=== PATIENT | male | born 1950 | race Caucasian/White ===

== ENCOUNTER 2019-08-16 11:10 | Inpatient (IN) ==
[2019-08-16] MEDS ORDERED: IOPAMIDOL 100 ML BOTTLE IV ONE (11:11)
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
[2019-08-16] MEDS ORDERED: PYRIDOSTIGMINE 60 MG TABLET PO ONE ×2 (12:03→17:10)
[2019-08-16 12:21] LABS: ABG Methemoglobin 0.2 % (0.4-1.5); VBG Base Excess 3.3 (-2.0-2.0); VBG HCO3 29.7 mmol/L (24.0-28.0); VBG Oxygen Saturation 66.5 % (40.0-70.0); VBG PCO2 51.3 mmHg (41.0-51.0); VBG PH 7.38 U (7.32-7.42); VBG PO2 38 mmHg (25-40); VBG Total CO2 31.2 mmol/L (25.0-29.0)
[2019-08-16 12:31] LABS: Basophils # (Auto) 0 K/mcL (0.0-0.3); Basophils % (Auto) 0.6 % (0.0-2.0); Eosinophils # (Auto) 0.2 K/mcL (0.0-0.7); Eosinophils % (Auto) 3.2 % (0.0-7.0); Granulocytes % (Auto) 64.4 % (38.0-78.0); Hematocrit 48.6 % (41.0-55.0); Lymphocytes # (Auto) 1.2 K/mcL (1.5-4.8); Lymphocytes % (Auto) 19.7 % (15.5-49.0); Mean Cell Volume 94.9 fL (80.0-100.0); Mean Platelet Volume 8.3 fL (7.4-10.4); Monocytes # (Auto) 0.7 K/mcL (0.1-0.9); Monocytes % (Auto) 12.1 % (1.0-12.0); Platelet Count 163 K/mcL (140-440); RBC 5.12 M/mcL (4.50-5.90); Red Cell Distribution Width 13.8 % (11.5-14.5); WBC 5.9 K/mcL (4.5-11.0)
[2019-08-16 12:54] LABS: ALT/SGPT 33 U/l (0-40); AST/SGOT 44 U/l (0-37); Albumin 3.6 gm/dL (3.2-5.2); Albumin/Globulin Ratio 1.1 (1.0-2.3); Alkaline Phosphatase 136 U/L (39-117); Bilirubin,Total 0.5 mg/dL (0.0-1.0); Blood Urea Nitrogen 16 mg/dl (8-23); C-Reactive Protein 2.3 mg/dl (0.0-0.8); Calcium 8.8 mg/dl (8.6-10.4); Carbon Dioxide 29 mmol/L (22-30); Chloride 101 mmol/L (96-108); Globulin 3.4 gm/dL (2.2-3.7); Glomerular Filtration Rate 92; Glucose 67 mg/dL (70-105)
--- NOTE | 2019-08-16 13:09 | XRay Report ---
CLINICAL INFORMATION: rib pain, SOB COMPARISON: None. FINDINGS: The heart is mildly enlarged. Mediastinum unremarkable. Pulmonary vessels are mildly distended and there is mild interstitial disease throughout both lungs which could indicate edema from CHF. Small right pleural effusion noted. Acute minimally displaced fractures of the anterolateral left fifth, sixth and seventh ribs appreciated IMPRESSION: Mild CHF Acute mildly displaced fractures anterolateral left fifth sixth and seventh ribs Interpreted and Authenticated by: Apollo Lane 08/16/19
[2019-08-16] MEDS ORDERED: FUROSEMIDE 20 MG/2 ML VIAL IV ONE ×2 (13:20→19:37)
[2019-08-16] MEDS ORDERED: DEXTROSE 50% 50 ML SYRINGE IV ONE (15:55)
--- NOTE | 2019-08-16 16:32 | Cat Scan Report ---
CLINICAL INFORMATION: Hypoxia and chest pain COMPARISON: None. TECHNIQUE: 80 cc of Isovue-370 were injected intravenously, and 25 seconds later, 0.625 mm helical slices were obtained from the lung apices through the bases. Following reconstruction, 2.5 mm sagittal, coronal and axial reformations were processed and reviewed at lung, mediastinal and bone windows. 7 mm axial MIPS were also obtained to optimize pulmonary nodule detection. The exam was performed using radiation dose optimization techniques including, but not limited to, automated exposure control, adjustment of the mA and/or kV according to patient size and use of iterative reconstruction technique. FINDINGS: The pulmonary arteries are moderately distended but are well opacified no evidence of embolus. There is moderate interstitial edema within the interlobular and interlobar septa compatible with moderate congestive heart failure. Small lateral pleural effusions are present. There is mild atelectasis in both posterior lower lobes. No shannan infiltrates. Mediastinal windows also show the thoracic aorta is normal in diameter. The heart is moderately enlarged is heavy calcific fibrofatty plaque in the coronary arteries. There are multiple moderately enlarged mediastinal or hilar lymph nodes appreciated ranging up to 16 mm lower right paratracheal region. Images should the abdomen show wall thickening of the gallbladder multiple stones and pericholecystic fluid suggesting cholecystitis. Spleen is moderately enlarged estimated at 14 cm. Visualized kidneys pancreas and adrenal glands are normal.. Bones and soft tissues and chest wall show no abnormality IMPRESSION: 1. No evidence of pulmonary embolus 2. Moderate CHF 3. Cholecystitis 4. Mediastinal and hilar adenopathy. These may be benign reactive lymph nodes related CHF or prior infection. Lymphoma other neoplastic processes are, unfortunately not excluded. Spleen is moderately enlarged. Suggest short-term follow-up chest CT - 3 months Interpreted and Authenticated by: Apollo Lane 08/16/19
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
[2019-08-16] MEDS ORDERED: HYDROcodone/APAP 10/325MG TABLET PO PRN (19:37)
[2019-08-16] MEDS ORDERED: POTASSIUM CHLORIDE 20 MEQ TABLET PO PRN ×2 (19:37)
[2019-08-16] MEDS ORDERED: DEXTROSE 50% 50 ML VIAL IV PRN (19:37)
[2019-08-16] MEDS ORDERED: SENNOSIDES 1 TABLET PO PRN (19:37)
[2019-08-16] MEDS ORDERED: IPRATROPIUM/ALBUTEROL 3 ML AMPUL.NEB NEB ONE ×2 (19:37→19:52)
[2019-08-16] MEDS ORDERED: IPRATROPIUM/ALBUTEROL 3 ML AMPUL.NEB NEB PRN (19:37)
[2019-08-16] MEDS ORDERED: MAGNESIUM SULFATE 2 GM/50 ML BAG IV PRN (19:37)
[2019-08-16] MEDS ORDERED: POTASSIUM CHLORIDE 40 MEQ in DEXTROSE 5% IN WATER 500 ML IV PRN (19:37)
[2019-08-16] MEDS ORDERED: POLYETHYLENE GLYCOL 3350 17 GM PACKET PO PRN (19:37)
[2019-08-16] MEDS ORDERED: ONDANSETRON 4 MG/2 ML VIAL IV PRN (19:37)
[2019-08-16] MEDS ORDERED: DEXTROSE 31 GM ORAL.SUSP PO PRN (19:37)
[2019-08-16] MEDS: 0.9 % SODIUM CHLORIDE 10 ML SYRINGE IV SCH (20:58)
[2019-08-16] MEDS: INSULIN LISPRO 1 UNIT/0.01 ML UNIT SQ SCH (21:03)
[2019-08-16] MEDS: GABAPENTIN 300 MG CAPSULE PO SCH (21:10)
[2019-08-16] MEDS: MYCOPHENOLATE 250 MG CAPSULE PO SCH (21:10)
[2019-08-16] MEDS: DOCUSATE SODIUM 100 MG CAPSULE PO SCH (21:10)
[2019-08-16] MEDS: PRAMIPEXOLE 0.25 MG TABLET PO SCH (21:11)
[2019-08-16] MEDS: PYRIDOSTIGMINE 60 MG TABLET PO SCH (21:12)
[2019-08-16] MEDS: traZODone HCL 50 MG TABLET PO SCH (21:55)
[2019-08-17] MEDS: 0.9 % SODIUM CHLORIDE 10 ML SYRINGE IV SCH ×3 (04:52→21:09)
[2019-08-17 05:56] LABS: Basophils # (Auto) 0 K/mcL (0.0-0.3); Basophils % (Auto) 0.4 % (0.0-2.0); Eosinophils # (Auto) 0.2 K/mcL (0.0-0.7); Eosinophils % (Auto) 3.2 % (0.0-7.0); Granulocytes % (Auto) 63.5 % (38.0-78.0); Hemoglobin 15.4 g/dL (13.5-16.5); Lymphocytes # (Auto) 1.5 K/mcL (1.5-4.8); Lymphocytes % (Auto) 20.9 % (15.5-49.0); Mean Cell Volume 95.7 fL (80.0-100.0); Mean Corpuscular HGB Conc 32.9 g/dL (31.0-36.0); Mean Platelet Volume 8.3 fL (7.4-10.4); Monocytes # (Auto) 0.9 K/mcL (0.1-0.9); Platelet Count 164 K/mcL (140-440); RBC 4.91 M/mcL (4.50-5.90); WBC 7.1 K/mcL (4.5-11.0)
[2019-08-17 06:21] LABS: ALT/SGPT 29 U/l (0-40); AST/SGOT 40 U/l (0-37); Albumin 3.2 gm/dL (3.2-5.2); Albumin/Globulin Ratio 0.9 (1.0-2.3); Alkaline Phosphatase 128 U/L (39-117); Bilirubin,Direct < 0.2 mg/dL (0.0-0.3); Bilirubin,Total 0.4 mg/dL (0.0-1.0); Blood Urea Nitrogen 16 mg/dl (8-23); C-Reactive Protein 2.2 mg/dl (0.0-0.8); Calcium 8.6 mg/dl (8.6-10.4); Carbon Dioxide 30 mmol/L (22-30); Chloride 100 mmol/L (96-108); Globulin 3.4 gm/dL (2.2-3.7); Glomerular Filtration Rate 97; Glucose 112 mg/dL (70-105); Lactate Dehydrogenase 233 U/L (94-250); Phosphorous 3.5 mg/dL (2.7-4.5); Triglycerides 89 mg/dl (<150); Uric Acid 3.6 mg/dL (2.5-8.0)
--- NOTE | 2019-08-17 07:24 | Internal Med Progress Note ---
Medical - PN: Subj Patient information: Note initiated : 08/17/19 at 7:14 am Service Date, if different from initiated Date: [] Patient: Nikos De Leon 69 y/o M admitted on 08/16/19 for rib pain. Chief Complaint: [] Interval history: Mr. De Leon is a 69 year old M Who presents the ED with coughing and shortness of breath for a week. Patient denies any history of heart disease or lung disease. He does have history of raynauds, myasthenia gravis, obesity, diabetes, obstructive sleep apnea. Patient states a week ago he was crawling under his house and crawlspace and developed sudden left rib pain. Since that time he is developed a cough which is occasionally productive of clear sputum and shortness of breath. Those symptoms have continued for the past week with no improvement thus prompting him to come to the ED. He denies any peripheral edema or weight gain. Sometimes has edema in his legs but none lately. He sleeps flat in a bed. No orthopnea paroxysmal nocturnal dyspnea. He has chronic shortness of breath. Has never been evaluated for home oxygen. Does have some lower abdominal crampy pain. His chest pain is pleuritic worsened by coughing and deep breath. He was wheezy and states he only gets this way with a bad colds. Had some chills denies fever. Has occasional headache. Arrival in the ED was mid 80s on room air. CT chest was done which showed some interstitial edema with some underlying interstitial disease. Some small pleural effusion. Lymphadenopathy mediastinal. Splenomegaly. The read also mentions cholecystitis however the patient does not have any right upper quadrant abdominal pain on deep palpation. Concerns for CHF however he has no peripheral edema, unable to assess for JVD given his neck girth and adipose. He has no orthopnea. proBNP was low. Does h ave a history of Raynaud's disease and there is question of could this be a connective tissue/interstitial lung disease. Case was discussed with Dr. Wang, he was unable to read the films. he did not have any further recommendations at this time. Patient was given Lasix in the ED and did urinate quite a bit. Asked if he feels better from the time he arrived in the ED he does say yes, but is still on oxygen. 08/17 Patient had an echocardiogram in beginning of July, ordered by Dr. Caro. Patient thinks because he started hearing something in the veins and then concern of possible heart failure. But the echo report which is very brief mentions normal left ventricular systolic function and normal wall motion, no significant valvular disease. Patient overall feeling better still on oxygen this morning. Still has cough but that is improving and his shortness of breath is improving. Feel like the DuoNeb treatment last night helped. Is urinated quite a bit since the ED. R espiratory viral panel still pending. Difficulty sleeping because of uncomfortable bed. Has some crampy abdominal pain. Review of Systems: denies headache/fever/chills/nausea/vomiting/chest pain/. Otherwise see above. - Constitutional Vitals: Vital Signs Temp Pulse Resp BP Pulse Ox 98.5 F 64 28 H 122/66 92 08/17/19 03:55 08/17/19 03:55 08/17/19 03:55 08/17/19 03:55 08/17/19 03:55 Period Temp Pulse Resp BP Sys/Clifford Pulse Ox Last 24 Hr 97.8 F-98.5 F 52-111 15-28 99-156/46-109 85-96 Intake and Output 08/16/19 08/17/19 08/17/19 21:59 05:59 13:59 Intake Total 120 340 Output Total 825 1376 Balance -705 -1036 Weight 97.704 kg Intake & Output: Intake & Output 08/16/19 08/17/19 08/17/19 21:59 05:59 13:59 Intake Total 120 340 Output Total 825 1376 Balance -705 -1036 Weight 97.704 kg Intake: Oral 120 340 Output: Void Amount 825 1375 # of times incontinent of urine 1 Other: Meal chees stick, egg salad & crackers, juice 2x grahm cracker pk, 2x cheese stick, 1x whole milk Percent of Meal Consumed 100% 100% Feeding Ability Independent Independent Urine Appearance Clear Clear Urine Color Pale Dark Yellow Exam: General: Alert, Awake, No acute Distress, obese Eyes/N/T: EOMI, Head/Neck: neck supple, CV: RRR, No murmurs, Pulm: no rhonchi or wheezing today Abd: soft, nontender, +BS x4 Ext: no clubbing/cyanosis/edema Neuro: Alert, no focal deficits, moves all extremities, Skin: warm/dry Medical - PN: Obj Da - Labs CBC & Chem 7: 08/17/19 04:36 08/17/19 04:36 Labs: Abnormal Lab Results 08/17/19 08/16/19 08/16/19 04:36 11:55 11:54 [place] % (Auto) Lymph # (Auto) ESR 25 H ABG Methemoglobin 0.2 L VBG pCO2 51.3 H VBG HCO3 29.7 H VBG Total CO2 31.2 H VBG Base Excess 3.3 H Carboxyhemoglobin 3.4 H Glucose 112 H GGT 85 H AST 40 H Alkaline Phosphatase 128 H C-Reactive Protein 2.2 H NT-Pro-B Natriuret Pep Albumin/Globulin Ratio 0.9 L 08/16/19 08/16/19 08/16/19 11:54 11:54 11:54 [place] % (Auto) 12.1 H Lymph # (Auto) 1.2 L ESR ABG Methemoglobin VBG pCO2 VBG HCO3 VBG Total CO2 VBG Base Excess Carboxyhemoglobin Glucose 67 L GGT AST 44 H Alkaline Phosphatase 136 H C-Reactive Protein 2.3 H NT-Pro-B Natriuret Pep 251.0 H Albumin/Globulin Ratio Meds: Medications Hydrocodone Bitart/Acetaminophen ([place] 10/325mg) 1 tab PO Q6HP PRN PRN Reason: Pain Albuterol/Ipratropium (Duoneb) 3 ml NEB Q4HP PRN PRN Reason: Shortness Of Breath Dextrose (Dextrose 50%) 0 ml IV UD PRN PRN Reason: Hypoglycemia Diagnostic Test (Pha) (Accu-Chek) 1 each FS ACHS [facility] Last Admin: 08/17/19 03:57 Dose: 1 each Documented by: Docusate Sodium (Colace) 100 mg PO BID [facility] Last Admin: 08/16/19 21:10 Dose: 100 mg Documented by: Duloxetine HCl (Cymbalta) 60 mg PO QDAY [facility] Enoxaparin Sodium (Lovenox) 40 mg SQ DAILY [facility] Gabapentin (Neurontin) 900 mg PO BID [facility] Last Admin: 08/16/19 21:10 Dose: 900 mg Documented by: Glucose (Insta-Glucose) 15 gm PO PRN PRN PRN Reason: Hypoglycemia Potassium Chloride 40 meq/ (Dextrose) 520 mls @ 130 mls/hr IV UD PRN PRN Reason: Potassium < 3 Magnesium Sulfate (Magnesium Sulfate) 2 gm in 50 mls @ 50 mls/hr IV UD PRN PRN Reason: Magnesium </= 1.6 Insulin Human Lispro (Humalog) 0 unit SQ ACHS [facility]; Protocol Last Admin: 08/16/19 21:03 Dose: Not Given Documented by: Mycophenolate Mofetil (Cellcept) 250 mg PO BID [facility] Last Admin: 08/16/19 21:10 Dose: 250 mg Documented by: Ondansetron HCl (Zofran) 4 mg IV Q4HP PRN PRN Reason: Nausea And Vomiting Polyethylene Glycol (Miralax) 17 gm PO DAILYP PRN PRN Reason: Constipation Potassium Chloride (Kdur) 40 meq PO UD PRN PRN Reason: Potssium is 3-3.5 Potassium Chloride (Kdur) 40 meq PO UD PRN PRN Reason: Potassium < 3 Pramipexole Dihydrochloride (Mirapex) 0.25 mg PO [facility] Last Admin: 08/16/19 21:11 Dose: 0.25 mg Documented by: Pyridostigmine [place] (Mestinon) 60 mg PO 5XD [facility] Last Admin: 08/16/19 21:12 Dose: 60 mg Documented by: Senna (Senokot) 2 tab PO HSP PRN PRN Reason: Constipation Sertraline HCl (Zoloft) 100 mg PO QDAY [facility] Sodium Chloride (Saline Flush) 10 ml IV Q8 [facility] Last Admin: 08/17/19 04:52 Dose: 10 ml Documented by: Tamsulosin HCl (Flomax) 0.4 mg PO QDAY [facility] Trazodone HCl (Desyrel) 50 mg PO [facility] Last Admin: 08/16/19 21:55 Dose: 50 mg Documented by: Verapamil HCl (Calan) 120 mg PO QDAY [facility] - ABG Interpretation ABG results: 08/16/19 11:55 ABG Methemoglobin 0.2 L VBG pH 7.38 VBG pCO2 51.3 H VBG pO2 38 VBG HCO3 29.7 H VBG Total CO2 31.2 H VBG O2 Saturation 66.5 VBG Base Excess 3.3 H Medical - PN: A/P - Time Spent With Patient Total time spent is greater than 50% in coordination of care (as documented) at patient's floor/unit and/or counseling patient: - Narrative A/P Narrative: A: *Acute hypoxic respiratory failure: diastolic chf vs ILD vs other + likely atelectasis given poor effort from rib fx's -on 3L NC -ESR unimpressive for inflammatory cause, CRP mildly elevated -ECHO in July wth normal LV, no sig valvular dz -diuresed 2200 last night plus >1000cc in ED *Bronchospasm: *Left Rib Fx's: *DM w/ neuropathy: hypoglycemia, ?medications *Raynauds: On verapamil *Myasthenia gravis: On mycophenolate and Mestinon. Follows with Dr. uKnz *Obesity: *MIRELLA: *Chronic pain: *RLS, BPH: *?cholecystitis: per CT, but no abdominal pain -GB u/s with stones and thickening but no pericholecystic fluid, no abd pain P: -IV lasix today x1 -wean o2, splinting technique -IS, prn nebs consider steroids -resp viral panel -GB u/s -cont verapamil/myco/mestinon -SSI -pt/ot -ppx: lovenox full code Medical - PN: Qual - VTE Deep Vein Thrombosis/Pulmonary Embolism Present on Admission: No
[2019-08-17] MEDS: INSULIN LISPRO 1 UNIT/0.01 ML UNIT SQ SCH ×4 (07:35→21:04)
[2019-08-17] MEDS ORDERED: VERAPAMIL HCL 80 MG TABLET PO SCH (09:00)
[2019-08-17] MEDS ORDERED: SERTRALINE 100 MG TABLET PO SCH ×2 (09:00→21:00)
[2019-08-17] MEDS ORDERED: DULoxetine 30 MG CAPSULE PO SCH ×2 (09:00→21:00)
[2019-08-17] MEDS ORDERED: FUROSEMIDE 40 MG/4 ML VIAL IV ONE (09:04)
--- NOTE | 2019-08-17 09:41 | XRay Report ---
CLINICAL INFORMATION: f/u infiltrate, ?edema vs PNA vs ILD COMPARISON: None. FINDINGS: Heart is normal size. Mediastinum is unremarkable. Pulmonary vessels are normal caliber. There is moderate interstitial disease throughout both lungs which is similar prior study. No effusions. IMPRESSION: Moderate diffuse interstitial disease which could indicate interstitial fibrosis or interstitial inflammation. No evidence of CHF Interpreted and Authenticated by: Apollo Lane 08/17/19
--- NOTE | 2019-08-17 09:44 | Ultrasound Report ---
CLINICAL INFORMATION: ?cholecystitis COMPARISON: None. FINDINGS: Liver is normal in size and echotexture without focal lesion. Multiple stones present in the gallbladder ranging up to 1.4 cm. Gallbladder wall is mildly thickened: 4 mm. Common bile is normal: 5 mm. Pancreas unremarkable IMPRESSION: Cholecystitis Interpreted and Authenticated by: Apollo Lane 08/17/19
[2019-08-17] MEDS: GABAPENTIN 300 MG CAPSULE PO SCH ×2 (10:17→10:57)
[2019-08-17] MEDS: ENOXAPARIN 40 MG/0.4 ML SYRINGE SQ SCH (10:17)
[2019-08-17] MEDS: TAMSULOSIN 0.4 MG CAPSULE PO SCH (10:17)
[2019-08-17] MEDS: PYRIDOSTIGMINE 60 MG TABLET PO SCH ×5 (10:18→20:58)
[2019-08-17] MEDS: MYCOPHENOLATE 250 MG CAPSULE PO SCH ×2 (10:18→10:57)
[2019-08-17] MEDS: DOCUSATE SODIUM 100 MG CAPSULE PO SCH ×2 (10:19→21:01)
--- NOTE | 2019-08-17 10:43 | Discharge Summary ---
Medical - DS: Prov Patient information: Note initiated : 08/17/19 at 10:41 am Service Date, if different from initiated Date: [] Patient: Nikos De Leon 69 y/o M admitted on 08/16/19 for rib pain. Chief Complaint: [] Date of admission: 08/16/19 19:23 Discharge date: 08/18/19 Primary care physician: Adarsh Martinez Consults: 08/16/19 Consult to Physician [CONS] Stat Comment: Consulting Provider: Rajan Galeas Reason For Exam: Physician to Consult 08/17/19 10:27 Consult to Physician [CONS] Routine Comment: ?cholecystitis Consulting Provider: Juan Enrique Reason For Exam: Physician to Consult 08/17/19 10:36 Consult to Physician [CONS] Routine Comment: Consulting Provider: Juan Enrique Reason For Exam: Physician to Consult Medical - DS: Meds - Discharge Medications Active and Home Medications: Home Medications DULoxetine HCL [Duloxetine HCl] 60 mg PO HS 08/16/19 [History Confirmed 08/17/19 Last Taken 08/16/19 08:00] Gabapentin [Neurontin] 900 mg PO QAM 08/16/19 [History Confirmed 08/17/19 Last Taken 08/16/19 08:00] Hydrocodone-Acetamin 10-325 mg 10 mg PO Q6HRT PRN 08/16/19 [History Confirmed 08/16/19 Last Taken 08/15/19 22:00] Mycophenolate [Cellcept] 500 mg PO QAM 08/16/19 [History Confirmed 08/17/19 Last Taken 08/16/19 08:00] Pramipexole [Mirapex] 0.25 mg PO HS 08/16/19 [History Confirmed 08/16/19 Last Taken 08/15/19 22:00] Pyridostigmine [Mestinon] 60 mg PO 5XD 08/16/19 [History Confirmed 08/16/19 Last Taken 08/16/19 17:30] Sertraline [Zoloft] 200 mg PO HS 08/16/19 [History Confirmed 08/17/19 Last Taken 08/15/19 22:00] Tamsulosin [Flomax] 0.4 mg PO QDAY 08/16/19 [History Confirmed 08/16/19 Last Taken 08/16/19 08:00] Trazodone HCl 100 mg PO HS 08/16/19 [History Confirmed 08/17/19 Last Taken 08/15/19 22:00] Verapamil [Calan] 200 mg PO QDAY 08/16/19 [History Confirmed 08/17/19 Last Taken 08/16/19 08:00] Gabapentin [Neurontin] 1,800 mg PO HS 08/17/19 [History Confirmed 08/17/19 Last Taken Unknown] Insulin 70/30, Human [Novolin 70/30] 80 unit SQ AC 08/17/19 [History Confirmed 08/17/19 Last Taken Unknown] Insulin 70/30, Human [Novolin 70/30] 85 unit SQ HS 08/17/19 [History Confirmed 08/17/19 Last Taken Unknown] Insulin Lispro [HumaLOG] 12 unit SQ ACHS PRN 08/17/19 [History Confirmed 08/17/19 Last Taken Unknown] Mycophenolate [Cellcept] 250 mg HS 08/17/19 [History Confirmed 08/17/19 Last Taken Unknown] Pramipexole [Mirapex] 1 mg PO HS 08/17/19 [History Confirmed 08/17/19 Last Taken Unknown] Medical - DS: Hosp Hospital Course: Mr. De Leon is a 69 year old M Who presents the ED with coughing and shortness of breath for a week. Patient denies any history of heart disease or lung disease. He does have history of raynauds, myasthenia gravis, obesity, diabetes, obstructive sleep apnea. Patient states a week ago he was crawling under his house and crawlspace and developed sudden left rib pain. Since that time he is developed a cough which is occasionally productive of clear sputum and shortness of breath. Those symptoms have continued for the past week with no improvement thus prompting him to come to the ED. He denies any peripheral edema or weight gain. Sometimes has edema in his legs but none lately. He sleeps flat in a bed. No orthopnea paroxysmal nocturnal dyspnea. He has chronic shortness of breath. Has never been evaluated for home oxygen. Does have some lower abdominal crampy pain. His chest pain is pleuritic worsened by coughing and deep breath. He was wheezy and states he only gets this way with a bad colds. Had some chills denies fever. Has occasional headache. Arrival in the ED was mid 80s on room air. CT chest was done which showed some interstitial edema with some underlying interstitial disease. Some small pleural effusion. Lymphadenopathy mediastinal. Splenomegaly. The read also mentions cholecystitis however the patient does not have any right upper quadrant abdominal pain on deep palpation. Concerns for CHF however he has no peripheral edema, unable to assess for JVD given his neck girth and adipose. He has no orthopnea. proBNP was low. Does have a history of Raynaud's disease and there is question of could this be a connective tissue/interstitial lung disease. Case was discussed with Dr. Wang, he was unable to read the films. he did not have any further recommendations at this time. Patient was given Lasix in the ED and did urinate quite a bit. Asked if he feels better from the time he arrived in the ED he does say yes, but is still on oxygen. 08/17 Patient had an echocardiogram in beginning of July, ordered by Dr. Caro. Patient thinks because he started hearing something in the veins and then concern of possible heart failure. But the echo report which is very brief mentions normal left ventricular systolic function and normal wall motion, no significant valvular disease. Patient overall feeling better still on oxygen this morning. Still has cough but that is improving and his shortness of breath is improving. Feel like the DuoNeb treatment last night helped. Is urinated quite a bit since the ED. Respiratory viral panel still pending. Difficulty sleeping because of uncomfortable bed. Has some crampy abdominal pain. 08/18 08/18 Slept well. Feeling better this morning. Was on room air yesterday afternoon but while sleeping was placed back on oxygen. Now weaning down again. Down to 1 L. Not much of a cough and denies shortness of breath. Rib pain feeling better today. Respiratory panel showed parainfluenza virus 1. Taken off oxygen this morning at shift change. Patient doing well. Patient ambulating on room air with no shortness of breath and maintaining adequate oxygen saturations. Stable for discharge. Discharge diagnosis: Acute hypoxic respiratory failure diastolic CHF +/- viral PNA Secondary discharge diagnosis: Left rib fracture diabetes neuropathy raynauds myasthenia gravis obesity obstructive sleep apnea chronic pain - Time Spent with Patient Total time spent providing and/or coordinating discharge services: Greater than 30 minutes Medical - DS: Exam - Constitutional Vitals: Vital Signs Temp Pulse Pulse Resp BP BP Pulse Ox 08/17/19 08:00 98.1 F 85 26 H 105/56 97 08/17/19 03:55 98.5 F 64 28 H 122/66 92 08/16/19 23:30 98.2 F 62 24 H 99/46 93 08/16/19 21:15 61 08/16/19 20:57 57 L 18 94 08/16/19 20:00 55 L 18 08/16/19 19:35 98.0 F 59 L 15 117/57 95 08/16/19 19:30 97.8 F 56 L 16 128/64 96 08/16/19 19:21 59 L 15 95 08/16/19 19:16 58 L 19 117/57 94 08/16/19 19:01 54 L 21 118/63 95 08/16/19 18:47 15 120/78 08/16/19 18:31 64 20 128/75 96 08/16/19 18:16 59 L 22 113/75 94 08/16/19 18:11 60 20 95 08/16/19 18:01 54 L 17 121/73 96 08/16/19 17:46 59 L 21 129/68 96 08/16/19 17:41 63 20 95 08/16/19 17:32 101/71 08/16/19 17:16 55 L 107/63 90 08/16/19 17:01 53 L 108/55 91 08/16/19 16:46 57 L 117/61 91 08/16/19 16:31 57 L 115/61 91 08/16/19 16:16 52 L 108/54 94 08/16/19 16:02 56 L 106/63 93 08/16/19 15:57 57 L 145/109 92 08/16/19 15:22 111 H 148/69 85 L 08/16/19 15:01 53 L 133/76 92 08/16/19 14:46 57 L 151/69 85 L 08/16/19 14:43 57 L 146/68 88 L 08/16/19 14:38 59 L 146/68 89 L 08/16/19 14:31 61 156/72 87 L 08/16/19 14:20 59 L 154/70 90 08/16/19 11:10 98.0 F 67 28 H 127/64 90 Intake and Output 08/16/19 08/17/19 08/17/19 21:59 05:59 13:59 Intake Total 120 340 Output Total 825 1376 Balance -705 -103 Intake: Oral 120 340 Output: Void Amount 825 1375 # of times incontinent of urine 1 Other: Meal chees stick, egg salad & crackers, juice 2x grahm cracker pk, 2x cheese stick, 1x whole milk Percent of Meal Consumed 100% 100% Feeding Ability Independent Independent Urine Appearance Clear Clear Urine Color Pale Dark Yellow Weight 97.704 kg Medical - DS: Data Labs on day of discharge: Labs from last 24 hours 08/17/19 08/17/19 08/16/19 04:36 04:36 11:55 WBC 7.1 RBC 4.91 Hgb 15.4 Hct 47.0 MCV 95.7 MCH 31.4 MCHC 32.9 RDW 14.0 Plt Count 164 MPV 8.3 Gran % 63.5 Lymph % (Auto) 20.9 [place] % (Auto) 12.0 Eos % (Auto) 3.2 Baso % (Auto) 0.4 Gran # 4.5 Lymph # (Auto) 1.5 [place] # (Auto) 0.9 Eos # (Auto) 0.2 Baso # (Auto) 0 ESR ABG Methemoglobin VBG pH VBG pCO2 VBG pO2 VBG HCO3 VBG Total CO2 VBG O2 Saturation VBG Base Excess Carboxyhemoglobin Total Hemoglobin O2 Delivery Level Sodium 140 Potassium 3.7 Chloride 100 Carbon Dioxide 30 Anion Gap 10.0 BUN 16 Creatinine 0.7 GFR Calculation 97 Glucose 112 H Uric Acid 3.6 Calcium 8.6 Phosphorus 3.5 Magnesium 1.8 Total Bilirubin 0.4 Direct Bilirubin < 0.2 GGT 85 H AST 40 H ALT 29 Alkaline Phosphatase 128 H Lactate Dehydrogenase 233 Troponin T < 0.01 C-Reactive Protein 2.2 H NT-Pro-B Natriuret Pep Total Protein 6.6 Albumin 3.2 Globulin 3.4 Albumin/Globulin Ratio 0.9 L Triglycerides 89 Procalcitonin 08/16/19 08/16/19 08/16/19 11:55 11:55 11:54 WBC RBC Hgb Hct MCV MCH MCHC RDW Plt Count MPV Gran % Lymph % (Auto) [place] % (Auto) Eos % (Auto) Baso % (Auto) Gran # Lymph # (Auto) [place] # (Auto) Eos # (Auto) Baso # (Auto) ESR 25 H ABG Methemoglobin 0.2 L VBG pH 7.38 VBG pCO2 51.3 H VBG pO2 38 VBG HCO3 29.7 H VBG Total CO2 31.2 H VBG O2 Saturation 66.5 VBG Base Excess 3.3 H Carboxyhemoglobin 3.4 H Total Hemoglobin 16.0 O2 Delivery Level Not Reportable Sodium Potassium Chloride Carbon Dioxide Anion Gap BUN Creatinine GFR Calculation Glucose Uric Acid Calcium Phosphorus Magnesium Total Bilirubin Direct Bilirubin GGT AST ALT Alkaline Phosphatase Lactate Dehydrogenase Troponin T C-Reactive Protein NT-Pro-B Natriuret Pep Total Protein Albumin Globulin Albumin/Globulin Ratio Triglycerides Procalcitonin < 0.05 08/16/19 08/16/19 08/16/19 11:54 11:54 11:54 WBC 5.9 RBC 5.12 Hgb 16.0 Hct 48.6 MCV 94.9 MCH 31.3 MCHC 33.0 RDW 13.8 Plt Count 163 MPV 8.3 Gran % 64.4 Lymph % (Auto) 19.7 [place] % (Auto) 12.1 H Eos % (Auto) 3.2 Baso % (Auto) 0.6 Gran # 3.8 Lymph # (Auto) 1.2 L [place] # (Auto) 0.7 Eos # (Auto) 0.2 Baso # (Auto) 0 ESR ABG Methemoglobin VBG pH VBG pCO2 VBG pO2 VBG HCO3 VBG Total CO2 VBG O2 Saturation VBG Base Excess Carboxyhemoglobin Total Hemoglobin O2 Delivery Level Sodium 140 Potassium 4.0 Chloride 101 Carbon Dioxide 29 Anion Gap 10.0 BUN 16 Creatinine 0.8 GFR Calculation 92 Glucose 67 L Uric Acid Calcium 8.8 Phosphorus Magnesium Total Bilirubin 0.5 Direct Bilirubin GGT AST 44 H ALT 33 Alkaline Phosphatase 136 H Lactate Dehydrogenase Troponin T C-Reactive Protein 2.3 H NT-Pro-B Natriuret Pep 251.0 H Total Protein 7.0 Albumin 3.6 Globulin 3.4 Albumin/Globulin Ratio 1.1 Triglycerides Procalcitonin Medical - DS: A/P - Patient/Caregiver Discharge Instructions Activity: increase activity as tolerated Diet: Consistent Carbohydrate - Follow up Plan Follow up with: Adarsh Martinez MD [Primary Care Provider] - Israel Wang MD [Physician] - (Follow-up respiratory status and evaluation prior to elective cholecystectomy with Dr. Enrique.) Juan Enrique MD [Physician] - (f/u 2-3 weeks) Disposition: Home, Self-Care Prognosis: Fair Rehab Potential: Fair Overall status at discharge: patient is progressing back to baseline Medical - DS: Qual - VTE Deep Vein Thrombosis/Pulmonary Embolism Present on Admission: No
--- NOTE | 2019-08-17 11:02 | General Surgery Consult Note ---
History of Present Illness Patient information: Note initiated : 08/17/19 at 11:00 am Service Date, if different from initiated Date: [] Patient: Nikos De Leon 69 y/o M admitted on 08/16/19 for rib pain. Chief Complaint: [] Reason for consult: gallstones Requesting physician: Rajan Galeas History of present illness: Patient is being evaluated for gallstone disease.. He was admitted with hypoxic respiratory failure with evidence of interstitial lung disease, congestive heart failure, rib fractures of 567 on the left. Rib fractures occurred while he was working under his house trying to fix a broken pipe. Patient states that he's had some lower abdominal pain over the past 3-4 days, but he denies any upper abdominal pain, nausea, vomiting. While being evaluated for his respiratory problems. He was noted to have multiple gallstones. Gallbladder w ith possible thickened gallbladder wall. He specifically denies right upper quadrant pain or any biliary colic type symptoms associated with meals. He has not had nausea or vomiting. Review of Systems - Constitutional fatigue, malaise, weakness, weight loss - EENT Nose, mouth and throat: abnormal hearing, no vertigo - Cardiovascular chest pain, dyspnea on exertion, pedal edema, no syncope - Respiratory cough, dyspnea on exertion, pain on inspirtation, pain with cough - Gastrointestinal abdominal pain, bloating, cramping, no heartburn, no loose stools, no melena, no vomiting - Genitourinary change in urinary stream, difficulty urinating, post void dribbling, urinary frequency, urinary hesitancy, urinary urgency - Musculoskeletal arthralgias, no muscle weakness, no myalgias, no stiffness - Integumentary other (he'll return to cause right lower extremity), no pruritus, no rash - Neurological abnormal gait, dizziness, tremor(s), weakness - Psychiatric anxiety, depression, irritability - Endocrine fatigue, no polydipsia, no polyphagia, no polyuria - Hematologic/Lymphatic no easy bleeding, no easy bruising, no lymphadenopathy - Allergic/Immunologic no tongue swelling, no throat swelling, no itchy eyes, no uticaria, no wheezing, no lip swelling Past History Past medical history: Anxiety disorder with depression. Raynaud's phenomena. Myasthenia gravis. Chronic obstructive sleep apnea Obesity. Diabetes mellitus Past surgical history: Cervical spine surgery. Lumbar fusion surgery. Sinus surgery Past family history: Mother age 60 due to diabetes mellitus. Father age 74 due to coronary artery Past social history: Lives alone. Denies tobacco use Denies alcohol use Denies drug use Medications and Allergies Home Medications Medication Instructions Recorded Confirmed Type DULoxetine HCL [Duloxetine HCl] 60 mg PO HS 08/16/19 08/17/19 History Gabapentin [Neurontin] 900 mg PO QAM 08/16/19 08/17/19 History Hydrocodone-Acetamin 10-325 mg 10 mg PO Q6HRT PRN 08/16/19 08/16/19 History Mycophenolate [Cellcept] 500 mg PO QAM 08/16/19 08/17/19 History Pramipexole [Mirapex] 0.25 mg PO HS 08/16/19 08/16/19 History Pyridostigmine [Mestinon] 60 mg PO 5XD 08/16/19 08/16/19 History Sertraline [Zoloft] 200 mg PO HS 08/16/19 08/17/19 History Tamsulosin [Flomax] 0.4 mg PO QDAY 08/16/19 08/16/19 History Trazodone HCl 100 mg PO HS 08/16/19 08/17/19 History Verapamil [Calan] 200 mg PO QDAY 08/16/19 08/17/19 History Gabapentin [Neurontin] 1,800 mg PO HS 08/17/19 08/17/19 History Insulin 70/30, Human [Novolin 80 unit SQ AC 08/17/19 08/17/19 History 70/30] Insulin 70/30, Human [Novolin 85 unit SQ HS 08/17/19 08/17/19 History 70/30] Insulin Lispro [Humalog] 12 unit SQ ACHS PRN 08/17/19 08/17/19 History Mycophenolate [Cellcept] 250 mg HS 08/17/19 08/17/19 History Pramipexole [Mirapex] 1 mg PO HS 08/17/19 08/17/19 History Allergies Allergy/AdvReac Type Severity Reaction Status Date / Time cephalexin [From Keflex] Allergy Unknown Verified 08/16/19 11:13 metformin Allergy Unknown Verified 08/16/19 11:13 Sulfa (Sulfonamide Allergy Unknown Verified 08/16/19 11:13 Antibiotics) lanolin AdvReac Rash Verified 08/16/19 20:42 Exam Temp Pulse Resp BP Pulse Ox 98.1 F 85 26 H 105/56 97 08/17/19 08:00 08/17/19 08:00 08/17/19 08:00 08/17/19 08:00 08/17/19 08:00 - General physical appearance well developed, well nourished, no distress, moderate distress, moderate pain, chronically ill - Eyes PERRL, normal ocular movement. negative: icteric - ENT normal pinna, normal nares, normal mucosa, no congestion, decreased hearing - Head Head exam IM: Present: atraumatic, normocephalic - Neck no masses, no bruits, trachea midline, no lymphadenopathy, no venous distension - Cardiovascular Cardiovascular exam IM: Present: normal rate and rhythm, RRR, +S1, +S2. Absent: JVD, tachycardia - Respiratory other (splinting on the left with decreased breath sounds bilaterally; coarse tubular breath sounds on the right with probable pleural rub on the right) - Abdomen Abdomen: Present: soft, tender (mild hypogastric midline tenderness; no d istention; hyperactive bowel sounds), bowel sounds Hernia: Present: none - Genitourinary Present: normal penis with no external lesions - Integumentary Present: no rash, no growths, no abnormal pigmentation, other (O [place] skin graft changes, right lower extremity) - Neurologic Present: normal coordination, normal sensation, other (chronic tremor, upper and lower extremities with resting tremor. Lower extremities) - Musculoskeletal Present: normal gait, normal posture - Psychiatric Present: oriented to time, oriented to person, oriented to place, speech is normal, memory intact Results - Labs 08/17/19 04:36 08/17/19 04:36 Abnormal lab results 08/16/19 08/16/19 08/16/19 Range/Units 11:54 11:54 11:54 [place] % (Auto) 12.1 H (1.0-12.0) % Lymph # (Auto) 1.2 L (1.5-4.8) K/mcL ESR (0-15) mm/hr ABG Methemoglobin (0.4-1.5) % VBG pCO2 (41.0-51.0) mmHg VBG HCO3 (24.0-28.0) mmol/L VBG Total CO2 (25.0-29.0) mmol/L VBG Base Excess (-2.0-2.0) Carboxyhemoglobin (0.0-1.5) % THgb Glucose 67 L (70-105) mg/dL GGT (8-61) U/L AST 44 H (0-37) U/l Alkaline Phosphatase 136 H (39-117) U/L C-Reactive Protein 2.3 H (0.0-0.8) mg/dl NT-Pro-B Natriuret Pep 251.0 H (0-125) pg/ml Albumin/Globulin Ratio (1.0-2.3) 08/16/19 08/16/19 08/17/19 Range/Units 11:54 11:55 04:36 [place] % (Auto) (1.0-12.0) % Lymph # (Auto) (1.5-4.8) K/mcL ESR 25 H (0-15) mm/hr ABG Methemoglobin 0.2 L (0.4-1.5) % VBG pCO2 51.3 H (41.0-51.0) mmHg VBG HCO3 29.7 H (24.0-28.0) mmol/L VBG Total CO2 31.2 H (25.0-29.0) mmol/L VBG Base Excess 3.3 H (-2.0-2.0) Carboxyhemoglobin 3.4 H (0.0-1.5) % THgb Glucose 112 H (70-105) mg/dL GGT 85 H (8-61) U/L AST 40 H (0-37) U/l Alkaline Phosphatase 128 H (39-117) U/L C-Reactive Protein 2.2 H (0.0-0.8) mg/dl NT-Pro-B Natriuret Pep (0-125) pg/ml Albumin/Globulin Ratio 0.9 L (1.0-2.3) Diabetes panel 08/16/19 08/17/19 Range/Units 11:54 04:36 Sodium 140 140 (133-145) mmol/L Potassium 4.0 3.7 (3.3-5.1) mmol/L Chloride 101 100 (96-108) mmol/L Carbon Dioxide 29 30 (22-30) mmol/L BUN 16 16 (8-23) mg/dl Creatinine 0.8 0.7 (0.7-1.2) mg/dl Glucose 67 L 112 H (70-105) mg/dL Calcium 8.8 8.6 (8.6-10.4) mg/dl AST 44 H 40 H (0-37) U/l ALT 33 29 (0-40) U/l Alkaline Phosphatase 136 H 128 H (39-117) U/L Total Protein 7.0 6.6 (5.9-8.4) gm/dL Albumin 3.6 3.2 (3.2-5.2) gm/dL Triglycerides 89 (<150) mg/dl Calcium panel 08/16/19 08/17/19 Range/Units 11:54 04:36 Calcium 8.8 8.6 (8.6-10.4) mg/dl Phosphorus 3.5 (2.7-4.5) mg/dL Albumin 3.6 3.2 (3.2-5.2) gm/dL Pituitary panel 08/16/19 08/17/19 Range/Units 11:54 04:36 Sodium 140 140 (133-145) mmol/L Potassium 4.0 3.7 (3.3-5.1) mmol/L Chloride 101 100 (96-108) mmol/L Carbon Dioxide 29 30 (22-30) mmol/L BUN 16 16 (8-23) mg/dl Creatinine 0.8 0.7 (0.7-1.2) mg/dl Glucose 67 L 112 H (70-105) mg/dL Calcium 8.8 8.6 (8.6-10.4) mg/dl Adrenal panel 08/16/19 08/17/19 Range/Units 11:54 04:36 Sodium 140 140 (133-145) mmol/L Potassium 4.0 3.7 (3.3-5.1) mmol/L Chloride 101 100 (96-108) mmol/L Carbon Dioxide 29 30 (22-30) mmol/L BUN 16 16 (8-23) mg/dl Creatinine 0.8 0.7 (0.7-1.2) mg/dl Glucose 67 L 112 H (70-105) mg/dL Calcium 8.8 8.6 (8.6-10.4) mg/dl Total Bilirubin 0.5 0.4 (0.0-1.0) mg/dL AST 44 H 40 H (0-37) U/l ALT 33 29 (0-40) U/l Alkaline Phosphatase 136 H 128 H (39-117) U/L Total Protein 7.0 6.6 (5.9-8.4) gm/dL Albumin 3.6 3.2 (3.2-5.2) gm/dL All other labs normal. Assessment and Plan (1) Cholelithiasis Though the patient has gallstones. He does not have any symptoms of an inflamed gallbladder or biliary colic. Based on the number of gallstones. He probably should have cholecystectomy performed electively after he has adequately recovered from his pulmonary problems. I will gladly see him as an outpatient Status: Acute (2) Ribs, multiple fractures Status: Acute Qualifiers: Encounter type: initial encounter Fracture type: closed Laterality: left Qualified Code(s): S22.42XA - Multiple fractures of ribs, left side, initial encounter for closed fracture (3) Hypoxia Status: Acute (4) Diabetes mellitus type 2, insulin dependent Status: Chronic (5) Myasthenia gravis Status: Chronic Comment: Chronically on Mestinon and mycophenolate (6) Anxiety, generalized Status: Chronic (7) Obesity (BMI 30.0-34.9) Status: Chronic (8) Depression, major, recurrent Status: Chronic
[2019-08-17] MEDS ORDERED: IPRATROPIUM/ALBUTEROL 3 ML AMPUL.NEB NEB ONE ×2 (13:21→13:30)
[2019-08-17] MEDS ORDERED: IPRATROPIUM/ALBUTEROL 3 ML AMPUL.NEB NEB PRN (13:24)
[2019-08-17] MEDS ORDERED: DEXTROSE 50% 50 ML VIAL IV ONE (13:54)
[2019-08-17] MEDS: VERAPAMIL HCL 80 MG TABLET PO SCH (15:19)
[2019-08-17] MEDS ORDERED: MYCOPHENOLATE 250 MG CAPSULE PO SCH (21:00)
[2019-08-17] MEDS ORDERED: PRAMIPEXOLE 1 MG TABLET PO SCH (21:00)
[2019-08-17] MEDS ORDERED: GABAPENTIN 300 MG CAPSULE PO SCH (21:00)
[2019-08-17] MEDS: traZODone HCL 50 MG TABLET PO SCH (21:01)
[2019-08-17] MEDS: PRAMIPEXOLE 0.25 MG TABLET PO SCH (21:02)
[2019-08-18] MEDS: 0.9 % SODIUM CHLORIDE 10 ML SYRINGE IV SCH (05:31)
[2019-08-18 06:37] LABS: ALT/SGPT 28 U/l (0-40); AST/SGOT 32 U/l (0-37); Albumin 3.2 gm/dL (3.2-5.2); Albumin/Globulin Ratio 0.9 (1.0-2.3); Alkaline Phosphatase 121 U/L (39-117); Bilirubin,Direct 0.2 mg/dL (0.0-0.3); Bilirubin,Total 0.8 mg/dL (0.0-1.0); Blood Urea Nitrogen 14 mg/dl (8-23); Calcium 9.1 mg/dl (8.6-10.4); Carbon Dioxide 30 mmol/L (22-30); Chloride 100 mmol/L (96-108); Globulin 3.7 gm/dL (2.2-3.7); Glomerular Filtration Rate 103; Glucose 122 mg/dL (70-105); Lactate Dehydrogenase 228 U/L (94-250); Triglycerides 77 mg/dl (<150); Uric Acid 3.4 mg/dL (2.5-8.0)
--- NOTE | 2019-08-18 07:32 | Internal Med Progress Note ---
Medical - PN: Subj Patient information: Note initiated : 08/18/19 at 7:29 am Service Date, if different from initiated Date: [] Patient: Nikos De Leon 69 y/o M admitted on 08/16/19 for rib pain. Chief Complaint: [] Interval history: Mr. De Leon is a 69 year old M Who presents the ED with coughing and shortness of breath for a week. Patient denies any history of heart disease or lung disease. He does have history of raynauds, myasthenia gravis, obesity, diabetes, obstructive sleep apnea. Patient states a week ago he was crawling under his house and crawlspace and developed sudden left rib pain. Since that time he is developed a cough which is occasionally productive of clear sputum and shortness of breath. Those symptoms have continued for the past week with no improvement thus prompting him to come to the ED. He denies any peripheral edema or weight gain. Sometimes has edema in his legs but none lately. He sleeps flat in a bed. No orthopnea paroxysmal nocturnal dyspnea. He has chronic shortness of breath. Has never been evaluated for home oxygen. Does have some lower abdominal crampy pain. His chest pain is pleuritic worsened by coughing and deep breath. He was wheezy and states he only gets this way with a bad colds. Had some chills denies fever. Has occasional headache. Arrival in the ED was mid 80s on room air. CT chest was done which showed some interstitial edema with some underlying interstitial disease. Some small pleural effusion. Lymphadenopathy mediastinal. Splenomegaly. The read also mentions cholecystitis however the patient does not have any right upper quadrant abdominal pain on deep palpation. Concerns for CHF however he has no peripheral edema, unable to assess for JVD given his neck girth and adipose. He has no orthopnea. proBNP was low. Does h ave a history of Raynaud's disease and there is question of could this be a connective tissue/interstitial lung disease. Case was discussed with Dr. Wang, he was unable to read the films. he did not have any further recommendations at this time. Patient was given Lasix in the ED and did urinate quite a bit. Asked if he feels better from the time he arrived in the ED he does say yes, but is still on oxygen. 08/17 Patient had an echocardiogram in beginning of July, ordered by Dr. Caro. Patient thinks because he started hearing something in the veins and then concern of possible heart failure. But the echo report which is very brief mentions normal left ventricular systolic function and normal wall motion, no significant valvular disease. Patient overall feeling better still on oxygen this morning. Still has cough but that is improving and his shortness of breath is improving. Feel like the DuoNeb treatment last night helped. Is urinated quite a bit since the ED. R espiratory viral panel still pending. Difficulty sleeping because of uncomfortable bed. Has some crampy abdominal pain. 08/18 Slept well. Feeling better this morning. Was on room air yesterday afternoon but while sleeping was placed back on oxygen. Now weaning down again. Down to 1 L. Not much of a cough and denies shortness of breath. Respiratory panel showed parainfluenza virus 1 Review of Systems: denies headache/fever/chills/nausea/vomiting/chest pain/. Otherwise see above. - Constitutional Vitals: Vital Signs Temp Pulse Resp BP Pulse Ox 98.6 F 56 L 18 101/53 92 08/18/19 04:01 08/18/19 04:01 08/18/19 04:01 08/18/19 04:01 08/18/19 04:01 Period Temp Pulse Resp BP Sys/[place] Pulse Ox Last 24 Hr 96.9 F-98.8 F 56-85 18-26 101-122/53-62 90-97 Intake and Output 08/17/19 08/18/19 08/18/19 21:59 05:59 13:59 Intake Total 600 100 Output Total 625 450 Balance -25 -350 Weight 95.935 kg Intake & Output: Intake & Output 08/17/19 08/18/19 08/18/19 21:59 05:59 13:59 Intake Total 600 100 Output Total 625 450 Balance -25 -350 Weight 95.935 kg Intake: Oral 600 100 Output: Void Amount 625 450 Other: Meal Dinner Percent of Meal Consumed 100% Urine Appearance Clear Clear Urine Color Bright Yellow Bright Yellow # Bowel Movements 1 Exam: General: Alert, Awake, No acute Distress, obese Eyes/N/T: EOMI, Head/Neck: neck supple, CV: RRR, No murmurs, Pulm: cleariong up, no noticeable rhonchi or wheezing today Abd: soft, nontender, +BS x4 Ext: no clubbing/cyanosis/edema Neuro: Alert, no focal deficits, moves all extremities, Skin: warm/dry Medical - PN: Obj Da - Labs CBC & Chem 7: 08/17/19 04:36 08/18/19 04:47 Labs: Abnormal Lab Results 08/18/19 08/18/19 08/17/19 04:47 04:47 04:36 [place] % (Auto) Lymph # (Auto) ESR ABG Methemoglobin VBG pCO2 VBG HCO3 VBG Total CO2 VBG Base Excess Carboxyhemoglobin Creatinine 0.6 L Glucose 122 H 112 H GGT 83 H 85 H AST 40 H Alkaline Phosphatase 121 H 128 H C-Reactive Protein 2.4 H 2.2 H NT-Pro-B Natriuret Pep Albumin/Globulin Ratio 0.9 L 0.9 L 08/16/19 08/16/19 08/16/19 11:55 11:54 11:54 [place] % (Auto) Lymph # (Auto) ESR 25 H ABG Methemoglobin 0.2 L VBG pCO2 51.3 H VBG HCO3 29.7 H VBG Total CO2 31.2 H VBG Base Excess 3.3 H Carboxyhemoglobin 3.4 H Creatinine Glucose GGT AST Alkaline Phosphatase C-Reactive Protein NT-Pro-B Natriuret Pep 251.0 H Albumin/Globulin Ratio 08/16/19 08/16/19 11:54 11:54 [place] % (Auto) 12.1 H Lymph # (Auto) 1.2 L ESR ABG Methemoglobin VBG pCO2 VBG HCO3 VBG Total CO2 VBG Base Excess Carboxyhemoglobin Creatinine Glucose 67 L GGT AST 44 H Alkaline Phosphatase 136 H C-Reactive Protein 2.3 H NT-Pro-B Natriuret Pep Albumin/Globulin Ratio Meds: Medications Hydrocodone Bitart/Acetaminophen ([place] 10/325mg) 1 tab PO Q6HP PRN PRN Reason: Pain Albuterol/Ipratropium (Duoneb) 3 ml NEB Q8HP PRN PRN Reason: Shortness Of Breath Dextrose (Dextrose 50%) 0 ml IV UD PRN PRN Reason: Hypoglycemia Diagnostic Test (Pha) (Accu-Chek) 1 each FS ACHS ALEXI Last Admin: 08/18/19 04:44 Dose: 1 each Documented by: Docusate Sodium (Colace) 100 mg PO BID [facility] Last Admin: 08/17/19 21:01 Dose: 100 mg Documented by: Duloxetine HCl (Cymbalta) 60 mg PO [facility] Last Admin: 08/17/19 21:02 Dose: 60 mg Documented by: Enoxaparin Sodium (Lovenox) 40 mg SQ DAILY [facility] Last Admin: 08/17/19 10:17 Dose: 40 mg Documented by: Gabapentin (Neurontin) 1,800 mg PO [facility] Last Admin: 08/17/19 21:00 Dose: 1,800 mg Documented by: Gabapentin (Neurontin) 900 mg PO DAILY [facility] Last Admin: 08/17/19 10:17 Dose: 900 mg Documented by: Glucose (Insta-Glucose) 15 gm PO PRN PRN PRN Reason: Hypoglycemia Potassium Chloride 40 meq/ (Dextrose) 520 mls @ 130 mls/hr IV UD PRN PRN Reason: Potassium < 3 Magnesium Sulfate (Magnesium Sulfate) 2 gm in 50 mls @ 50 mls/hr IV UD PRN PRN Reason: Magnesium </= 1.6 Insulin Human Lispro (Humalog) 0 unit SQ [facility]; Protocol Last Admin: 08/17/19 21:04 Dose: 10 units Documented by: Mycophenolate Mofetil (Cellcept) 250 mg PO [facility] Last Admin: 08/17/19 20:59 Dose: 250 mg Documented by: Mycophenolate Mofetil (Cellcept) 500 mg PO DAILY [facility] Last Admin: 08/17/19 10:18 Dose: 500 mg Documented by: Ondansetron HCl (Zofran) 4 mg IV Q4HP PRN PRN Reason: Nausea And Vomiting Pneumococcal Polyvalent Vaccine (Pneumovax 23) 0.5 ml IM .ONCE ONE Stop: 08/18/19 10:01 Polyethylene Glycol (Miralax) 17 gm PO DAILYP PRN PRN Reason: Constipation Potassium Chloride (Kdur) 40 meq PO UD PRN PRN Reason: Potssium is 3-3.5 Potassium Chloride (Kdur) 40 meq PO UD PRN PRN Reason: Potassium < 3 Pramipexole Dihydrochloride (Mirapex) 0.25 mg PO [facility] Last Admin: 08/17/19 21:02 Dose: 0.25 mg Documented by: Pramipexole Dihydrochloride (Mirapex) 1 mg PO HS [facility] Last Admin: 08/17/19 21:03 Dose: 1 mg Documented by: Pyridostigmine [place] (Mestinon) 60 mg PO 5XD [facility] Last Admin: 08/17/19 20:58 Dose: 60 mg Documented by: Senna (Senokot) 2 tab PO HSP PRN PRN Reason: Constipation Sertraline HCl (Zoloft) 100 mg PO HS [facility] Last Admin: 08/17/19 21:03 Dose: 100 mg Documented by: Sodium Chloride (Saline Flush) 10 ml IV Q8 [facility] Last Admin: 08/18/19 05:31 Dose: 10 ml Documented by: Tamsulosin HCl (Flomax) 0.4 mg PO QDAY [facility] Last Admin: 08/17/19 10:17 Dose: 0.4 mg Documented by: Trazodone HCl (Desyrel) 50 mg PO HS [facility] Last Admin: 08/17/19 21:01 Dose: 50 mg Documented by: Verapamil HCl (Calan) 200 mg PO DAILY [facility] Last Admin: 08/17/19 15:19 Dose: 200 mg Documented by: - ABG Interpretation ABG results: 08/16/19 11:55 ABG Methemoglobin 0.2 L VBG pH 7.38 VBG pCO2 51.3 H VBG pO2 38 VBG HCO3 29.7 H VBG Total CO2 31.2 H VBG O2 Saturation 66.5 VBG Base Excess 3.3 H Medical - PN: A/P - Time Spent With Patient Total time spent is greater than 50% in coordination of care (as documented) at patient's floor/unit and/or counseling patient: - Narrative A/P Narrative: A: *Acute hypoxic respiratory failure: (+)ParaInfluenza viral PNA + likely a component of diastolic chf & atelectasis given poor effort from rib fx's -on 1-2L NC -ECHO in July wt normal LV, no sig valvular dz -good diureses after lasix *Bronchospasm: 2/2 above, improved. pt reports improvement with duonebs *Left Rib Fx's: *DM w/ neuropathy: hypoglycemia events *Raynauds: On verapamil *Myasthenia gravis: On mycophenolate and Mestinon. Follows with Dr. Kunz *Obesity: *MIRELLA: *Chronic pain: *RLS, BPH: *Cholelithiasis, no clinical cholecystitis: P: -wean o2, splinting technique -IS, Nebs -consider steroids -decrease home insulin from 85 qhs to 10 bid of his 70/30 , SSI -cont verapamil/myco/mestinon -pt/ot -f/u with Dr. Wang outpt -f/u with Dr. Enrique outsegundo for eventual elective cholecystectomy -ppx: [facility] Medical - PN: Qual - VTE Deep Vein Thrombosis/Pulmonary Embolism Present on Admission: No
[2019-08-18] MEDS: INSULIN LISPRO 1 UNIT/0.01 ML UNIT SQ SCH ×2 (08:42→11:53)
[2019-08-18] MEDS: VERAPAMIL HCL 80 MG TABLET PO SCH (08:44)
[2019-08-18] MEDS: GABAPENTIN 300 MG CAPSULE PO SCH (08:44)
[2019-08-18] MEDS: PYRIDOSTIGMINE 60 MG TABLET PO SCH ×2 (08:44→11:54)
[2019-08-18] MEDS: MYCOPHENOLATE 250 MG CAPSULE PO SCH (08:45)
[2019-08-18] MEDS: ENOXAPARIN 40 MG/0.4 ML SYRINGE SQ SCH (08:46)
[2019-08-18] MEDS: TAMSULOSIN 0.4 MG CAPSULE PO SCH (08:54)
[2019-08-18] MEDS ORDERED: INSULIN, 75/25 NPL/LISPRO 1 UNIT/0.01 ML UNIT SQ SCH (09:00)
[2019-08-18] MEDS ORDERED: PNEUMOCOCCAL 23-VAL P-SAC VAC 0.5 ML SYRINGE IM ONE (10:00)
[2019-08-18] MEDS: DOCUSATE SODIUM 100 MG CAPSULE PO SCH (11:47)
== END 2019-08-18 14:05 | disposition home or self-care (01) | DRG 189 ==
LOC: ED 11:10 → MEDSUR 19:23
PROVIDERS: ADMIT Internal Medicine; ATTEND Internal Medicine